=== PATIENT | female | born 1990 | race African-American/Black ===

== ENCOUNTER 2017-01-02 23:02 | Emergency (ER) | payer SELFPAY ==
[~2017-01-02] VITALS: Ht 162.6 cm; Wt 120.0 kg
--- NOTE | ~2017-01-02 | CR72 ---
[facility] A Service of [facility] RADIOLOGY TEXT RESULTS PATIENT: IVY OWEN LOCATION: [facility] : [birth year] UNIT #: [id number] AGE: [address]: Donell Muse MD SEX: F ORDER DR: [id number] [facility] [address] [place], [place] [address] [id number] E MR#: [id number] Acc #: [id number] NAME: IVY OWEN : 1990 SEX: F STUDY DATE/TIME: 01/02/2017 23:55 UNIT: [facility] ROOM: STUDY DESCRIPTION: CR Chest Single View Portable Attending Physician: Donell Muse M.D. Ordering Physician: Donell Muse M.D. Primary Care Physician: Primary Care Physician No MEDICAL IMAGING REPORT This report is preliminary unless electronic signature is present EXAM Portable chest 01/02 23:55 INDICATION Cough, congestion for the last 12 hours with chest pain and shortness of air. FINDINGS A single AP portable view of the chest shows both lungs to be clear. The heart is normal in size. The mediastinal contour is normal. No significant bone abnormalities are seen. IMPRESSION Normal portable chest. Dictated by... Jay Sandra Jr., M.D. THIS IS AN ELECTRONICALLY VERIFIED REPORT Jay Sandra Jr., M.D. at 01/04/2017 9:10 PM KYRA/yolis TD: 01/04/2017 08:40 JOB #: [id number] MEDICAL IMAGING REPORT Page 1 of 1 COPY
--- NOTE | ~2017-01-02 | EKG ---
PATIENT: IVY OWEN UNIT #: [id number] Ventricular Rate: 69 BPM Atrial Rate: 69 BPM P-R Interval: 162 ms QRS Duration: 98 ms Q-T Interval: 406 ms QTC Calculation(Bezet): 435 ms P [place]: 72 degrees Calculated R [place]: 68 degrees Calculated T [place]: 64 degrees Diagnosis Line: Normal sinus rhythm Diagnosis Line: Normal ECG Diagnosis Line: No previous ECGs available Diagnosis Line: Confirmed by BARBARA MENARD MD ([id number]) on 01/03/2017 Diagnosis Line: 11:06:20 PM INTERPRETING MD: SAILAJA GUTIERREZ
== END 2017-01-03 01:08 | disposition short-term general hospital (02) ==
LOC: CED 23:02
DX: J20.9 Acute bronchitis, unspecified (principal); J45.909 Unspecified asthma, uncomplicated; I10 Essential (primary) hypertension; F17.200 Nicotine dependence, unspecified, uncomplicated
CPT/HCPCS: 71010; 93005; 94640; 99285